=== PATIENT | female | born 1945 | race Caucasian/White ===

== ENCOUNTER 2018-09-30 12:43 | Inpatient (IN) | payer MEDICARE, OTHER ==
[~2018-09-30] VITALS: Ht 149.9 cm; Wt 76.2 kg
[~2018-09-30 12:43] MED LIST: CITALOPRAM HBR20 MG PO; DOXAZOSIN MESYLA8 MG PO; FORTAMET500 MG PO; GEMFIBROZIL600 MG PO; GLIPIZIDE ER2.5 MG PO; HYDROCHLOROTH12.5 M1 PO; LIPITOR20 MG PO; LOSARTAN POTAS100 MG PO; OMEPRAZOLE20 MG PO
[2018-10-05] MEDS ORDERED: TYLENOL EXTRA500 MG PO (15:40)
--- NOTE | 2018-10-14 09:21 | NUR ---
10/14/18 0921 Shannan Hernandes 0914 PT ARRIVED TO PACU ON 6L VIA MASK, RESP EVEN AND UNLABORED. 0917 PT WOKE AND IS ORINETED TO PACU. PT DENIES PAIN AND NAUSEA. CBG 140. PT ABLE TO MOVE TOES. PT EDUCATION GIVEN ON SPINAL.
--- NOTE | 2018-10-14 10:09 | NUR ---
PT TO FLOOR TO ROOM 115 VIA STRETCHER AT 1000 ACCOMPANIED BY CL LOUISE. RECIEVED BEDSIDE REPORT FROM CL LOUISE. PT DENIES PAIN. PT DENIES NAUSEA. RENAE PAD IS CLEAN AND DRY.
--- NOTE | 2018-10-14 11:20 | NUR ---
PT SITTING UP IN RECLINER. PER REPORT FROM CL CHANDLER, PT WAS ABLE TO STAND AND PIVOT TRANSFER FROM RECLINER TO TOILET WITH 2 PERSON ASSIST, WELL FROM TOILET TO RECLINER. PERSONAL SUPPLIES AND CALL LIGHT IN REACH.
--- NOTE | 2018-10-14 11:28 | NUR ---
PT'S DERMATOME LEVEL AT L3.
--- NOTE | 2018-10-14 12:10 | NUR ---
PT IN BED, HOB ELEVATED. PT DENIES NAUSEA, DENIES PAIN. RENAE PAD HAS AREA OF BLOODY DRAINAGE APROXIMATLEY 1.5 INCHES BY 2.5 INCHES. PT ABLE TO MOVE FEET, TOES, LEGS. STILL SOME DIMINISHED SENSATION IN LOWER LEGS, FEET, AND TOES.
--- NOTE | 2018-10-14 12:28 | NUR ---
PT AT DERMATOME LEVEL S1.
--- NOTE | 2018-10-14 12:58 | NUR ---
PT'S DERMATOME LEVEL AT S3. SMALL AMOUNT OF SANGUAINOUS DRAINAGE NOTED ON RENAE PAD. PT DENIES PAIN, DENIES NAUSEA. TOLERATED CREAM OF MUSHROOM SOUP, VANILLA PUDDING, AND CRACKERS WITHOUT ISSUE. PERSONAL SUPPLIES AND CALL LIGHT IN REACH.
--- NOTE | 2018-10-14 14:10 | NUR ---
RECIEVED CALL FROM DR. CASTRO, RECIEVED TELEPHONE ORDER READ BACK TO IMPLEMENT ACCU CHECKS, AND HUMALIN R MODERATE SSI ORDER SET. ORDER SET FOR MODERATE SSI HUMALIN R AND ACCOMPANYING ORDERS INCLUDING ACCU CHECKS ENTERED WITH DR. CASTRO'S APROVAL.
--- NOTE | 2018-10-14 21:00 | NUR ---
ROUNDED CHARGE. PATIENT IS RESTING IN BED. PATIENTS PRIMARY RN IS IN THE ROOM. PATIENT DENIES ANY COMMENTS, QUESTIONS AND CONCERNS. NO NEEDS NOTED. CALL LIGHT IN REACH.
--- NOTE | 2018-10-14 21:04 | NUR ---
AWAKE, WATCHING TV, NO C/O PAIN, RECEIVED SCHEDULE MOTRIN 800MG PO, CBG 152, RECEIVED 1 U SC INSULIN. COPX IN PLACE, VAG PACKING STILL IN PLACE, FC DRAINING DARK YELLOW URINE. SCDS IN PLACE. REPOSITIONS SELF IN BED. HS MED EDUCATION COMPLETD, QUESTIONS ANSWERED. CALL LIGHT AND FLUIDS AT BEDSIDE 1PA, LBM 10/13/18
--- NOTE | 2018-10-15 05:06 | NUR ---
HAS SLEPT, CPOX IN PLCE, SATS 92-96%, PT REQUESTED TO HAVE O2 ON AT HS 2LNC. TOLERATD WELL. HAS VAGINAL PACKING IN PLACE WITH SMALL AMOUNT OF SANGUINEOUS DRAINAGE. F/C PATENT, PT AWARE THAT IT WILL BE TAKEN OUT THIS AM, AND TO NOTIFY STUFF AFTER EACH VOIDING. STATED UNDERSTANDING, NO C/O PAIN. TOLERATING DIET AND FLUIDS WELL. CALL LIGHT AT BEDSIDE. IVF INFUSING W/O PROBLEMS, IS AT BEDSIDE
--- NOTE | 2018-10-15 06:46 | NUR ---
F/C DC'D TIP INTACT. PROCEDURE EXPLAINED, COOPERATIVE, VAGINAL PACK IN PLACE. PT AWARE OF POST VOID RESIDUL CHECKS AFTER EACH VOID.. MEDICATED WITH MOTRIN 800MG PO SCHEDULED. WATCHING TV, CALL LIHGT AT BEDSIDE
--- NOTE | 2018-10-15 07:30 | NUR ---
REPORT RECEIVED FROM HIGH DENSITY TALC COATER OPERATOR RN. PT AWAKE IN BED. DENIES PAIN. LR AT 125 INFUSING. CALL LIGHT IN REACH. DENIES NEEDS.
--- NOTE | 2018-10-15 09:38 | NUR ---
PT UP TO SHOWER. THEN TO VOID. ABLE TO VOID 200. POST VOID RESIDULA WAS 212.
--- NOTE | 2018-10-15 10:00 | NUR ---
PT OUT TO AMBULATE IN WIGGINS. TOLERATED WELL. DENIES PAIN.
--- NOTE | 2018-10-15 10:05 | NUR ---
PT UP TO VOID. 200ML OUT. POST VOID RESIDUAL 249. PT INSTRUCTED TO ATTEMP TO VOID AGAIN IN 30 MINUTES.
--- NOTE | 2018-10-15 11:45 | NUR ---
PT UP TO ATTEMPT TO VOID WITHOUT SUCCESS. UP TO SIDE OF BED FOR LUNCH. BLOOD SUGAR 106.
--- NOTE | 2018-10-15 12:34 | NUR ---
PT CALLED, VOIDED. 50 ML OF URIN EIN HAT, BLADDER SCAN FOR 415 ML. PT PROVIDED WITH BABY WIPES AND A FRESH PAD. PT DENIES OTHER NEEDS AT THIS TIME.
--- NOTE | 2018-10-15 12:40 | NUR ---
DR CASTRO CALLED AND NOTIFIED OF POST VOID RESIDUAL OF 415 AFTER 50 ML VOID. VERBAL ORDER TO PLACE STRAIGHT CATHETER NOW. NURSE NOTIFY PLACED TO REPLACE CATHERINE CATHETER IF BLADDER IS SCANNED FOR MORE THEN 400ML AFTER STRAIGHT CATHETER.
--- NOTE | 2018-10-15 12:52 | OR ---
[facility] [address] [place], [place] [address] Signed DATE OF OPERATION: 10/14/2018 SURGEON: Liza Arcos MD SQL MANAGER: Luc Muhammad MD PREOPERATIVE DIAGNOSES: Cystocele and rectocele. POSTOPERATIVE DIAGNOSES: Cystocele and rectocele. PROCEDURES PERFORMED: Cystocele and rectocele repair, sacrospinous cuff suspension, cystoscopy. ANESTHESIA: Spinal with IV sedation. ESTIMATED BLOOD LOSS: 75 mL. DRAINS: Odell catheter. PACKS: Vaginal. INDICATIONS AND FINDINGS: The patient is a 73-year-old female, 2, para 2, status post total abdominal hysterectomy in the distant past, who has been having increasing issues with vaginal pressure and prolapse. She has also had some urinary urgency. At the time of surgery, she had a grade 3 cystocele as well as a grade 4 rectocele. There was no evidence of any enterocele. DESCRIPTION OF PROCEDURE: The patient was prepped and draped in the dorsal lithotomy position. A weighted speculum was placed and the anterior wall of the vagina was grasped in the midline using Allis clamps and a superficial incision was made with a knife longitudinally along the cystocele. The vaginal mucosa was from the underlying tissue with a Electronically Signed By: LIZA ARCOS MD 10/15/18 1252 PATIENT NAME: ESTEBAN ENNIS OPERATIVE REPORT DATE OF : 47 REPORT #: [id number] PHYSICIAN: LIZA ARCOS MD PCP: THEA CONNELL PA-C REPORT IS CONFIDENTIAL AND NOT TO BE RELEASED WITHOUT AUTHORIZATION [facility] [address] [place], [place] [address] Signed combination of blunt and sharp dissection. This dissection was carried out laterally. The bladder neck was well elevated as was urethra. Following this, there was quite a bit of redundancy of the bladder tissue and a pursestring suture of 2-0 chromic was used to reduce some of the redundancy. Interrupted sutures of 0 Vicryl were used to plicate what remained of the pubovesical fascia. Following this, the vaginal mucosa was trimmed a fair amount and the vaginal mucosa was closed with a running suture of 2-0 Vicryl. Following this, the cystoscopy was done. The Odell catheter was removed and the cystoscope placed. The 30-degree scope was used. The bladder was investigated. There was no evidence of any injury to the bladder. She had received IV fluorescein and IV fluorescein was seen to freely egress from both of the ureteral orifices without any difficulty. Following this, the bladder was drained and the Odell catheter replaced. At this point, the rectocele repair was begun. A triangle of tissue was removed from the perineal body with the knife. The vaginal mucosa was undermined, incised in the midline to the apex of the vagina. The vaginal mucosa was from the underlying tissue with a combination of blunt and sharp dissection and this was carried out laterally as well as superiorly to the ischial spines. There was a large bulge in the perirectal space and this was felt initially to represent a large enterocele. However, a rectal examination confirmed that this was the rectum and that there was no enterocele present. There was somewhat of a fat pad over the rectum. Following this, the Capio device was used to place a 0 Bidwell-Ever suture into the sacrospinous ligament in its midportion. These were placed for use later. The defect in the posterior compartment was quite large and there was no evidence of any perirectal fascial type tissue. Because of this, the decision was made to proceed with a more traditional rather than a site-specific repair. As this was going to narrow the vagina fairly significantly, the Bidwell-Ever sutures were used at this point to anchor one end to the vaginal cuff and these were tied down, elevating the vaginal apex. The sutures were tied bilaterally and there was no angulation of the vagina. Following this, 0 Vicryl sutures were used to plicate the levator muscles in the midline and this reduced the central defect nicely. Following this, a rectal examination was done, which confirmed that there were no sutures compromising the rectal lumen. FloSeal was injected around the sacrospinous ligaments bilaterally to aid in hemostasis. The vaginal mucosa was trimmed a large amount because of the redundancy and the vaginal mucosa was closed with a running suture from the apex of the vagina to the hymenal ring. Additional sutures were required near the apex for control of bleeding. The posterior fourchette was recreated with a running suture of 2-0 Vicryl. The perineum was recreated with interrupted sutures of 2-0 Vicryl. The skin of the perineum was closed with subcuticular sutures of 2-0 Vicryl. Inspection of the vault showed some narrowing, but good length. Good hemostasis was noted and the vaginal canal was packed with sulfa coated gauze. All sponge and needle counts were correct. She tolerated the procedure well and was taken to the recovery room in good condition. Electronically Signed By: LIZA ARCOS MD 10/15/18 1252 PATIENT NAME: ESTEBAN ENNIS OPERATIVE REPORT DATE OF : 47 REPORT #: [id number] PHYSICIAN: LIZA ARCOS MD PCP: THEA CONNELL PA-C REPORT IS CONFIDENTIAL AND NOT TO BE RELEASED WITHOUT AUTHORIZATION [address] [place] [address] Signed MD MAKENZIE Dunaway/VERONICA /[id number] cc: MD Thea Macias PA-C Copies: LUC MUHAMMAD MD, CHLOE K PA-C ~ Electronically Signed By: LIZA ARCOS MD 10/15/18 1252 PATIENT NAME: ESTEBAN ENNIS OPERATIVE REPORT DATE OF : 47 REPORT #: [id number] PHYSICIAN: LIZA ARCOS MD PCP: THEA CONNELL PA-C REPORT IS CONFIDENTIAL AND NOT TO BE RELEASED WITHOUT AUTHORIZATION
--- NOTE | 2018-10-15 13:00 | NUR ---
PLACED STRAGIHT CATHETER. 400ML OUT. PT TOLERATED WELL. CALL LIGHT IN REACH.
--- NOTE | 2018-10-15 14:00 | NUR ---
PT UP TO VOID. ABLE TO VOID 100 MLS. 398 POST VOID RESIDULE.
--- NOTE | 2018-10-15 14:32 | NUR ---
SPOKE WITH STAFF WHO STATES PATIENT IS INDEPENDENT AND PLANS TO RETURN HOME AT DISCHARGE. NO KNOWN CM NEEDS AT THIS TIME, THEY WILL PLACE CONSULT IF NEEDS ARE PRESENT.
--- NOTE | 2018-10-15 14:54 | NUR ---
IN TO ADMINSTERED MOTRIN AND PLACE CATHERINE CATHETER PER DR ORDER. PT UP TO ATTEMPT TO VOID ONE LAST TIME.
--- NOTE | 2018-10-15 15:17 | NUR ---
SET PATIENT UP FOR A SHOWER THIS MORNING.
--- NOTE | 2018-10-15 18:29 | NUR ---
PT HAD GOOD DAY. MINIMAL PAIN, ONLY REPORTS "GAS" PAIN IN LLQ. SCHEDULE MOTRIN. PT AMBULATED HALLS X2. SOME URINARY RETENTION. CATHERINE REPLACED. PT WITH GOOD PO INTAKE AND URINARY OUTPUT. SCANT AMOUNT OF RED VAGINAL BLEEDING PRESENT. BLOOD SUGARS WELL CONTROLLED. METFORMAN RESTARTED. PT SALINE LOCKED. BOWEL TONES ACTIVE. ABLE TO HAVE BM TODAY. VITAL SIGNS WNL.
--- NOTE | 2018-10-15 20:37 | NUR ---
ASSISTED PT BACK TO BED FROM RESTROOM. VS AND I&O'S OBTAINED AND ENTERED. PT REFUSED SCDS AT THIS TIME BECAUSE SHE THINKS SHE MAY NEED TO HAVE ANOTHER BM SOON. SHE DENIES FURTHER NEEDS AT THIS TIME. CALL LIGHT IS WITHIN REACH.
--- NOTE | 2018-10-15 21:24 | NUR ---
coop with assessment, sl patent. f/c patent draining qs yellow urine. cbg 107, medicated with scheduled 800mg po, call light at bedside. no n/v
--- NOTE | 2018-10-15 23:41 | NUR ---
pt had declines senna and mineral oil earlier, requesting at this time. given . Pt up in chair, c/o abd gas. f/c patent. call light at hands reach, denies need forpan med "its just gas," denies vaginal drainage
--- NOTE | 2018-10-16 01:08 | NUR ---
RESTING IN CHAIR, EYES CLOSED, ON ROOM AIR. LEGS ELEVATED, F/C PATENT, CALL LIGHT AT HANDS REACH
--- NOTE | 2018-10-16 05:24 | NUR ---
PT AWAKE, MEDICATED WITH SCHEDULE MOTRIN 800MG PO . F/C WAS DC'D THIS AM. PT AWARE OF POST VOID RESIDUL CHECKS. HAS TOLERATED LIQUIDS WELL, WALKED IN ROOM. SCANT AMOUNT OF CAGINAL SS DRAINAGE. C/O ABD CRAMPING, STATES PASSING GAS. CALL LIGHT AND FLUIDS AT BEDSIDE
--- NOTE | 2018-10-16 07:26 | NUR ---
0700: Report recieved from Claudia MSALLWOOD. Pt sleeping at this time.
--- NOTE | 2018-10-16 07:50 | NUR ---
PATIENT RESTING ON THE COUCH. CALL LIGHT WITHIN REACH. NO OTHER NEEDS AT THIS TIME
--- NOTE | 2018-10-16 07:58 | NUR ---
PT STATES HER PAIN IS A 3 AND IS WELL CONTROLED. RENAE-PAD DRESSING NOTED TO HAVE A SCANT AMOUNT OF RED DRAINAGE WITH NO S/S OF INFECTION. DR CASTRO TO THE ROOM CHECKING ON THE PT AT THIS TIME. PT UP TO THE BR TO ATTEMPT TO VOID.
--- NOTE | 2018-10-16 08:05 | NUR ---
PT VOIDED 25 ML AND WAS BLADDER SCANNED FOR 63 ML.
--- NOTE | 2018-10-16 08:19 | NUR ---
PATIENT AMBULATING IN THE WIGGINS.
--- NOTE | 2018-10-16 09:23 | NUR ---
Pt given a K pad for heat as ordered. The pt states she is doing well other than not being able to void. Pt lying in bed with call gramajo within reach. Pt reminded to call after she voids. Pt had been up and ambulated "2-3" laps in the hallway.
--- NOTE | 2018-10-16 10:34 | NUR ---
PATIENT SITTING UP IN CHAIR. VITAL SIGNS AND I&O DONE. LOW DYASTOLIC BLOOD PRESSURE. RN NOTIFIED. PATIENT GOES TO WALK OUTSIDE THE IN THE WIGGINS. NO OTHER NEEDS AT THIS TIME
--- NOTE | 2018-10-16 11:02 | NUR ---
PT ATTEMPTED TO VOID WITH NO URINE, SHE WAS SCANNED FOR [address] CASTRO PRESENT AND AWARE OF THESE RESULTS.
--- NOTE | 2018-10-16 11:10 | NUR ---
PATIENT SITTING UP IN CHAIR. IV WRAPPED. SETS UP BATHROOM FOR SHOWER. PATIENT GOES TO TAKE A SHOWER. CALL LIGHT WITHIN REACH. NO OTHER NEEDS AT THIS TIME
--- NOTE | 2018-10-16 12:10 | NUR ---
CATHERINE CATH PLACED ORDERED AND THE PT WAS INSTRUCTED IN IT'S USE TO INCLUDE CARE OF THE CATH AND THE USE OF THE LEG AND NIGHT BAGS. PT ENCOURAGED TO KEEP A LOG OF THE OUTPUT AND TAKE IT WITH HER TO HER APT WITH DR CASTRO ON FRIDAY. PT STATES GOOD UNDERSTANDING.
[2018-10-16] MEDS ORDERED: IBUPROFEN800 MG PO ×2 (12:58→13:01)
[2018-10-16] MEDS ORDERED: SENNA-DOCUSATE1 EACH PO (13:00)
== END 2018-10-16 14:04 | disposition home or self-care (01) | DRG 747 ==
LOC: DSVR 10-14 05:30 → MS 10-14 05:30
PROVIDERS: ADMIT Obstetrics & Gynecology
PROC: 0USG0ZZ Reposition Vagina, Open Approach (ICD-10-PCS; 2018-10-14)
PROC: 0JQC0ZZ Repair Pelvic Region Subcutaneous Tissue and Fascia, Open Approach (ICD-10-PCS; principal; 2018-10-14 06:45)
PROC: 0UQF0ZZ Repair Cul-de-sac, Open Approach (ICD-10-PCS; 2018-10-14 06:45)
DX: N81.11 Cystocele, midline (principal); N81.6 Rectocele; R39.15 Urgency of urination; D64.9 Anemia, unspecified; E87.6 Hypokalemia; E11.9 Type 2 diabetes mellitus without complications; E66.9 Obesity, unspecified; I10 Essential (primary) hypertension; R32 Unspecified urinary incontinence; F32.89 Other specified depressive episodes; G43.909 Migraine, unspecified, not intractable, without status migrainosus; E78.00 Pure hypercholesterolemia, unspecified; K21.9 Gastro-esophageal reflux disease without esophagitis; M19.90 Unspecified osteoarthritis, unspecified site; Z68.33 Body mass index [BMI] 33.0-33.9, adult; Z88.5 Allergy status to narcotic agent; Z96.651 Presence of right artificial knee joint; Z79.84 Long term (current) use of oral hypoglycemic drugs; Z79.899 Other long term (current) drug therapy
CPT/HCPCS: 00910; 36415; 51798; 80048; 84132; 85025; 94760; 94762; C1762; C2631; J0690; J1100; J1644; J1815; J2250; J2274; J2405; J2704; J2765; J3010; J7120

== ENCOUNTER 2024-03-02 07:37 | Day surgery (SDC) | payer MEDICARE, OTHER ==
[~2024-03-02] VITALS: Ht 149.9 cm; Wt 71.2 kg
[~2024-03-02 07:37] MED LIST changes: +CEFAZOLIN SODIUM 2 GM/20 ML SYR IV SCH; +CHOLESTYRAMINE P4 GM PO; +IBANDRONATE SO150 MG PO; +IBLOOD GLUCOSE TEST STRIP 1 EA TEST VI PRN; +IBUPROFEN800 MG PO; +LACTATED RINGER'S 1,000 ML IV SCH; +LIDOCAINE HCL 1% 5 ML SDV INJ ONE; +LIDOCAINE HCL 4% 50 ML BTL TOP SCH; +MIDAZOLAM HCL 5 MG/5 ML VIAL IV PRN; +MIDAZOLAM HCL 5 MG/5 ML VIAL ONE; +SENNA-DOCUSATE1 EACH PO; +TYLENOL EXTRA500 MG PO; +fentaNYL citrate 100 MCG/2 ML VIAL IV PRN; +fentaNYL citrate 100 MCG/2 ML VIAL ONE
[2024-03-02 08:04] VITALS: BP 113/41
[2024-03-02 10:30] VITALS: BP 117/56
--- NOTE | 2024-03-02 11:07 | NUR ---
03/02/24 1107 Sheets,Shannan 1003 PT ARRIVED TO PACU ON 2L VIA NC, PT WAKES EASILY AND DENIES CONCERNS. PT EASILY FALLS ASLEEP AND RESP EVEN AND UNLABORED. 1016 MD AT BEDSIDE AND TALKING TO PT. 1017 O2 REMOVED AND PT SITTING UP AND DENIES CONCERNS. 1020 PT SIPPING DIET SODA PER REQUEST. 1042 PT DRESSED HERSELF AND DC INSTRUCTIONS GIVEN. VSS. PAPERWORK GIVEN AND ALL QUESTIONS ANSWERED. RIDE CALLED AND PT DC VIA WC.
--- NOTE | 2024-03-02 12:16 | OR ---
[facility] [address] [place], [place] [address] Signed DATE OF OPERATION: 03/02/2024 SURGEON: John Puentes MD PREOPERATIVE DIAGNOSES: Gastroesophageal reflux and cervical dysphagia. POSTOPERATIVE DIAGNOSES: 1. Small hiatal hernia with mild chronic distal esophagitis. No proximal stricture. 2. Mucosal hypertrophy of duodenum. PROCEDURE: Esophagogastroduodenoscopy with biopsy. ANESTHESIA: Intravenous sedation; fentanyl 100 mcg and Versed 2 mg. INDICATION: A 78-year-old white woman has long-standing reflux on PPI medication omeprazole. She has been referred by her primary provider, BULL Coronado for upper endoscopy on the basis of proximal cervical dysphagia. She underwent upper endoscopy six years previously noting a hiatal hernia but no sign of stricture or Mendez's epithelium. In the last six months, she has been "choking" sometimes even on water. The level of problem seems to be the cervical esophagus above the sternal notch. She takes small bites, otherwise food will "stick." She has no family history of esophageal cancer and no known eosinophilic esophagitis or other similar problem. She is admitted at this time and undergo upper endoscopy to better characterize the problem. She understands the risk of bleeding, infection, and perforation and wished to proceed. FINDINGS: There was no obvious stricture of the proximal esophagus or elsewhere. She did have mild chronic distal esophagitis without evidence of Mendez's epithelium or other similar problem. She did have a hiatal hernia. There is marked duodenal mucosal hypertrophy of the bulbar duodenum. CLOtest was -15 minutes post procedure. There was no stricture of the esophagus proximally or distally, though she did have mild chronic distal esophagitis otherwise. PROCEDURE IN DETAIL: The patient was brought to the surgical endoscopy suite, placed in the lateral decubitus position, given intravenous sedation to the point of slurred speech and nystagmus with Electronically Signed By: JOHN PUENTES MD 03/02/24 1216 PATIENT NAME: ESTEBAN ENNIS OPERATIVE REPORT DATE OF : 47 REPORT #: [id number] PHYSICIAN: JOHN PUENTES MD PCP: THEA PAK PA-C REPORT IS CONFIDENTIAL AND NOT TO BE RELEASED WITHOUT AUTHORIZATION [facility] [address] [place], [place] [address] Signed full cardiopulmonary monitoring. A bite block was placed. An Olympus video upper endoscope was passed in the hypopharynx. The vocal cords appeared normal. The scope was advanced into the esophagus without problem showing no sign of neoplasm or other abnormality. The scope was advanced to the distal esophagus, which showed mild chronic esophagitis, but no sign of stricture or Mendez's epithelium. The scope was passed to the stomach which was inflated with air. There were few gastric polyps noted, likely related to PPI use. The antrum was reasonably normal as was the pylorus. The scope was passed through the pylorus into the duodenum which showed marked hypertrophy of the mucosa of the duodenal area. Biopsies were obtained. The 3rd portion was normal. The scope was withdrawn and biopsies taken of the antrum for both SE and pathologic testing. Biopsy of a gastric polyp was undertaken as well. Retroflexed view was undertaken showing a hiatal hernia. The scope was withdrawn to the distal esophagus, which was biopsied and withdrawn secondarily to the midesophagus allowing for biopsy there to assess for eosinophilic esophagitis. Careful withdrawal of scope in the proximal esophagus showed no lesion to account for her current symptoms. The scope was removed and the patient was taken recovery room in good condition. CONCLUDING DIAGNOSIS: Uncertainty as to cervical dysphagia. She does have hiatal hernia and likely has ongoing reflux, though without mucosal manifestation. PLAN: We will have my office arrange for a video esophagram to assess motility and see in office afterwards. In the meantime, continue PPI medication, omeprazole. MD KAREN Ramires/BRIANL /[id number] cc: Thea Pak PA-C Electronically Signed By: JOHN PUENTES MD 03/02/24 1216 PATIENT NAME: ESTEBAN ENNIS OPERATIVE REPORT DATE OF : 47 REPORT #: [id number] PHYSICIAN: JOHN PUENTES MD PCP: THEA PAK PA-C REPORT IS CONFIDENTIAL AND NOT TO BE RELEASED WITHOUT AUTHORIZATION [facility] [address] [place] [id number] Signed Copies: THEA PAK PA-C ~ Electronically Signed By: JOHN PUENTES MD 03/02/24 1216 PATIENT NAME: ESTEBAN ENNIS OPERATIVE REPORT DATE OF : 47 REPORT #: [id number] PHYSICIAN: JOHN PUENTES MD PCP: THEA PAK PA-C REPORT IS CONFIDENTIAL AND NOT TO BE RELEASED WITHOUT AUTHORIZATION
--- NOTE | 2024-03-04 15:25 | PATH ---
[facility] [address] [facility] [place] [address] Signed SPECIMEN(S): A DUODENAL BIOPSY SPECIMEN(S): B ANTRUM/PYLORUS BIOPSY SPECIMEN(S): C STOMACH POLYP SPECIMEN(S): D LOWER ESOPHAGEAL BIOPSY SPECIMEN(S): E MIDDLE ESOPHAGEAL BIOPSY SPECIMEN SOURCE: A. DUODENAL BIOPSY B. ANTRUM/PYLORUS BIOPSY C. STOMACH POLYP D. LOWER ESOPHAGEAL BIOPSY E. MIDDLE ESOPHAGEAL BIOPSY v CLINICAL HISTORY: Dysphagia, hiatal hernia, duodenitis, gastric polyp FINAL PATHOLOGIC DIAGNOSIS: A. Duodenum, biopsy: - Duodenal mucosa with peptic injury B. Stomach, antrum, biopsy: - Gastric antral and oxyntic mucosa with no significant pathologic changes - Negative for Helicobacter pylori with HE stains C. Stomach, polypectomy: - Fundic gland polyp D. Esophagus, lower, biopsy: - Esophageal squamous mucosa with reactive epithelial changes E. Esophagus, middle biopsy: - Esophageal squamous mucosa with no significant pathologic changes BRP MICROSCOPIC EXAMINATION: Histologic sections of all submitted blocks are examined by light microscopy. These findings, together with the gross examination, support the pathologic diagnosis. GROSS DESCRIPTION: A. The specimen, labeled and designated "Angela Higuera, per requisition duodenal biopsy," is received in formalin and consists of 2 pena tissue fragments ranging from 0.2 to 0.5 cm in greatest dimension. The specimen is entirely submitted in cassette A1. PATIENT NAME: LOLIESTEBANCHRIS ROBERTSON PATHOLOGY DATE OF : 47 REPORT #: [id number] PHYSICIAN: NABILA PATHOLOGY PCP: JARED CONNELL PA-C REPORT IS CONFIDENTIAL AND NOT TO BE RELEASED WITHOUT AUTHORIZATION [facility] [address] [place], [place] [address] Signed B. The specimen, labeled and designated "Angela Higuera, per requisition antrum/pylorus biopsy," is received in formalin and consists of 2 pena tissue fragments ranging from less than 0.1 cm to 0.5 cm in greatest dimension. The specimen is entirely submitted in cassette B1. C. The specimen, labeled and designated "Angela Higuera, per requisition stomach polyp," is received in formalin and consists of 2 pena tissue fragments ranging from 0.1 to 0.5 cm in greatest dimension. The specimen is entirely submitted in cassette C1. D. The specimen, labeled and designated "Angela Higuera, per requisition lower esophagus biopsy," is received in formalin and consists of 4 pena tissue fragments ranging from 0.5 to 0.7 cm in greatest dimension. The specimen is entirely submitted in cassette D1 E. The specimen, labeled and designated "Angela Higuera, per requisition middle esophagus biopsy," is received in formalin and consists of a single pena tissue fragment that is 0.7 cm in greatest dimension. The specimen is entirely submitted in cassette E1. AA (under the direct supervision of a pathologist) The Gross Description was prepared using a voice recognition system. The report was reviewed for accuracy; however, sound-alike word errors, addition and/or deletions may occur. If there is any question about this report, please contact Client Services. ADDITIONAL NOTES: Immunohistochemical and/or in situ hybridization studies if performed in this case included appropriate positive controls that reacted as expected. This test was developed and its performance characteristics determined by [facility]. It has not been cleared or approved by the U.S. Food and Drug Administration. The FDA has determined that such clearance or approval is not necessary. This test is used for clinical purposes. It should not be regarded as investigational or for research. [facility] is certified under the Clinical Laboratory Improvement Amendments of 1988 (CLIA) as qualified to perform high complexity clinical laboratory testing. PERFORMING LABORATORY: Technical component was performed by [facility], [address] [place] [address] (CLIA# [id number]). Professional interpretation was performed by [facility] [address] [facility] [id number] PATIENT NAME: ESTEBAN HIGUERA PATHOLOGY DATE OF : 47 REPORT #: [id number] PHYSICIAN: NABILA BURGESS PCP: JARED CONNELL PA-C REPORT IS CONFIDENTIAL AND NOT TO BE RELEASED WITHOUT AUTHORIZATION [address] [address] Signed Diagnostician: Maco Ruiz MD Pathologist Electronically Signed 03/04/2024 Copies: ~ PATIENT NAME: ESTEBAN HIGUERA PATHOLOGY DATE OF : 47 REPORT #: [id number] PHYSICIAN: NABILA PATHOLOGY PCP: JARED CONNELL PA-C REPORT IS CONFIDENTIAL AND NOT TO BE RELEASED WITHOUT AUTHORIZATION
== END 2024-03-02 10:42 | disposition home or self-care (01) ==
LOC: OPS 07:37 → DS 07:37 → OPS 09:15 → DS 12:15
PROVIDERS: ATTEND Surgery
PROC: 0DB98ZX Excision of Duodenum, Via Natural or Artificial Opening Endoscopic, Diagnostic (ICD-10-PCS; principal; 2024-03-02 09:15)
DX: K21.00 Gastro-esophageal reflux disease with esophagitis, without bleeding (principal); K44.9 Diaphragmatic hernia without obstruction or gangrene; K31.89 Other diseases of stomach and duodenum; I10 Essential (primary) hypertension; E78.5 Hyperlipidemia, unspecified; E11.9 Type 2 diabetes mellitus without complications; M19.90 Unspecified osteoarthritis, unspecified site; Z79.84 Long term (current) use of oral hypoglycemic drugs; Z79.899 Other long term (current) drug therapy; Z88.5 Allergy status to narcotic agent; K31.7 Polyp of stomach and duodenum
CPT/HCPCS: 88305; 99153; G0500; J0690; J2250; J3010; J7121